=== PATIENT | female | born 1970 | race African-American/Black ===

== ENCOUNTER 2018-07-17 06:18 | Emergency (ER) | payer SELFPAY ==
[~2018-07-17] VITALS: Ht 175.3 cm; Wt 89.8 kg
[2018-07-17 06:18] VITALS: BP_SYST 141
[2018-07-17] MEDS ORDERED: BACITRACIN 1 GM OINT TP ONE (06:45)
[2018-07-17 07:47] VITALS: BP_SYST 134
== END 2018-07-17 07:47 | disposition home or self-care (01) ==
LOC: SED 06:18
DX: S90.811A Abrasion, right foot, initial encounter (principal); M79.1 Myalgia; I10 Essential (primary) hypertension; V89.2XXA Person injured in unspecified motor-vehicle accident, traffic, initial encounter; Y93.89 Activity, other specified; Y92.410 Unspecified street and highway as the place of occurrence of the external cause; Y99.8 Other external cause status
CPT/HCPCS: 99282